=== PATIENT | female | born 1985 | race African-American/Black ===

== ENCOUNTER 2021-03-30 20:44 | Emergency (ER) | payer MEDICAID, OTHER ==
[~2021-03-30] VITALS: Ht 175.3 cm; Wt 148.0 kg
[2021-03-30 22:03] VITALS: BP 120/76
[2021-03-30] MEDS: KETOROLAC 60MG/2ML VIAL IM ONE (22:30)
[2021-03-30] MEDS: METHOCARBAMOL 500MG TABLET PO ONE (22:30)
[2021-03-30] MEDS ORDERED: METH-773 MT (23:31)
[2021-03-30] MEDS ORDERED: IBUP-2029 MT (23:31)
== END 2021-03-30 23:45 | disposition home or self-care (01) ==
LOC: ER 20:44
DX: S16.1XXA Strain of muscle, fascia and tendon at neck level, initial encounter (principal); Z88.6 Allergy status to analgesic agent; Z98.890 Other specified postprocedural states; Z86.59 Personal history of other mental and behavioral disorders; V43.52XA Car driver injured in collision with other type car in traffic accident, initial encounter; Y93.89 Activity, other specified; Y92.89 Other specified places as the place of occurrence of the external cause; Y99.8 Other external cause status
CPT/HCPCS: 81025; 99283

== ENCOUNTER 2022-01-04 21:29 | Emergency (ER) | payer OTHER ==
[~2022-01-04] VITALS: Ht 175.3 cm; Wt 148.5 kg
[~2022-01-04 21:29] MED LIST: IBUP-2029 MT; METH-773 MT
[2022-01-05 00:25] VITALS: BP 130/74
== END 2022-01-05 00:31 | disposition home or self-care (01) ==
LOC: ER 21:29
DX: G47.00 Insomnia, unspecified (principal); F31.9 Bipolar disorder, unspecified; F20.9 Schizophrenia, unspecified; Z98.890 Other specified postprocedural states
CPT/HCPCS: 99281

== ENCOUNTER 2023-03-04 00:36 | Emergency (ER) | payer OTHER ==
[~2023-03-04] VITALS: Ht 175.3 cm; Wt 145.0 kg
[2023-03-04 00:48] VITALS: BP 136/81
[2023-03-04] MEDS ORDERED: AMOX1TAB16 MT (02:44)
[2023-03-04] MEDS ORDERED: IBUP-2028 MT (02:44)
== END 2023-03-04 03:55 | disposition home or self-care (01) ==
LOC: ER 00:36
DX: K04.7 Periapical abscess without sinus (principal); F31.9 Bipolar disorder, unspecified; F20.9 Schizophrenia, unspecified; Z79.899 Other long term (current) drug therapy
CPT/HCPCS: 99283; Z7610

== ENCOUNTER 2024-10-29 13:11 | Emergency (ER) | payer OTHER ==
[~2024-10-29] VITALS: Ht 175.3 cm; Wt 105.0 kg
[~2024-10-29 13:11] MED LIST changes: +AMOX1TAB16 MT; +IBUP-2028 MT
[2024-10-29 13:18] VITALS: BP 123/78; PULSE 79; RESP 20; TEMP 36.8; O2SAT 98
[2024-10-29 14:54] LABS: CLARITY URINE CLOUDY (CLEAR); COLOR URINE RED (YELLOW)
[2024-10-29 14:55] LABS: GLUCOSE URINE NEGATIVE (NEGATIVE); KETONES URINE NEGATIVE (NEGATIVE); LEUKOCYTE ESTERASE URINE TRACE (NEGATIVE); NITRITE URINE NEGATIVE (NEGATIVE); OCCULT BLOOD URINE 3+ (NEGATIVE); PROTEIN URINE 1+ (NEGATIVE); UROBILINOGEN URINE 0.2 E.U./dL (0.2-1.0)
[2024-10-29 14:56] LABS: BACTERIA URINE 1+; RBC URINE TNTC /hpf (0-2); SQUAMOUS EPITHELIAL CELL URINE 1+ /lpf (RARE/1+); YEAST URINE NONE SEEN
[2024-10-29 15:25] LABS: BASOPHILS % 0.3 % (0.0-2.0); DIFFERENTIAL COMMENT 0; EOSINOPHILS % 0.8 % (0.0-5.0); HEMATOCRIT. 30.8 % (36.0-48.0); HEMOGLOBIN. 9.6 g/dL (12.0-16.0); LYMPHOCYTES % 32.2 % (20.0-50.0); MEAN CORPUSCULAR HEMOGLOBIN 23.5 pg (28.0-32.0); MEAN CORPUSCULAR HGB CONC 31.1 g/dL (31.0-37.0); MEAN CORPUSCULAR VOLUME 75.4 fL (81.0-99.0); MEAN PLATELET VOLUME 8.7 fl (7.4-10.4); MONOCYTES % 11.9 % (2.0-8.0); NEUTROPHILS % 54.8 % (40.0-76.0); PLATELET 295 x1000/uL (130-400); RED BLOOD CELL COUNT 4.09 mill/uL (4.2-5.4); RED CELL DISTRIBUTION WIDTH 18.5 % (11.6-14.6); WHITE BLOOD COUNT 7.1 x1000/uL (4.5-11.0)
[2024-10-29 15:31] LABS: CHLORIDE 112 mEq/L (98-107); POTASSIUM 4.3 mEq/L (3.5-5.1); SODIUM 140 mEq/L (136-145)
[2024-10-29 15:32] LABS: CALCIUM 9.3 mg/dL (8.7-10.4); CARBON DIOXIDE 22 mEq/L (21-32)
[2024-10-29 15:37] LABS: CREATININE 0.8 mg/dL (0.6-1.0); GLUCOSE 86 mg/dL (70-105); UREA NITROGEN BLOOD 8 mg/dL (9-23)
[2024-10-29] MEDS ORDERED: NITR-87 MT (15:43)
== END 2024-10-29 15:55 | disposition home or self-care (01) ==
LOC: ER 13:11
DX: N39.0 Urinary tract infection, site not specified (principal); D64.9 Anemia, unspecified; F20.9 Schizophrenia, unspecified; F31.9 Bipolar disorder, unspecified; Z88.5 Allergy status to narcotic agent
CPT/HCPCS: 36415; 80048; 81003; 81025; 85025; 86850; 86900; 99283